=== PATIENT | male | born 1960 | race Caucasian/White ===

== ENCOUNTER 2018-03-08 17:13 | Emergency (ER) | payer BC ==
[2018-03-08 17:49] VITALS: BP 156/73
--- NOTE | 2018-03-08 18:15 | RAD ---
INDICATION: Ulnar aspect RIGHT wrist pain for several weeks without known injury. COMPARISON: None. TECHNIQUE: AP, lateral, and oblique views RIGHT wrist. REPORT: Normal articular alignment. Negative for fracture. Mild osteophytosis and joint space narrowing at the basal joint of the thumb as well as the hamate fifth metacarpal articulation. Soft tissue swelling about the wrist most prominent over the ulnar aspect. IMPRESSION: #. Mild osteoarthritis. #. Soft tissue swelling most prominent over the ulnar aspect.
--- NOTE | 2018-03-08 18:23 | UC ---
Hand/Wrist HPI - HPI Summary HPI Summary: Patient to urgent care today with chief complaint of right wrist pain ulnar aspect No specific injury has been doing a lot of repetitive stress building of garage. And also works as a machine maintenance servicer for the [employer] - History Of Current Complaint Chief Complaint: UCUpperExtremity Stated Complaint: RIGHT WRIST COMPLAINT Time Seen by Provider: 03/08/18 17:39 Hx Obtained From: Patient ?: No Mechanism Of Injury: repeative stress Onset/Duration: Gradual Onset, Lasting Weeks - 2, Still Present Pain Intensity: 7 Pain Scale Used: 0-10 Numeric Character Of Pain: Aching, Throbbing Aggravating Factor(s): Movement Alleviating Factor(s): Nothing Associated Signs And Symptoms: Positive: Swelling, Redness Related History: Dominant Hand Right - Repetitive stress - Allergies/Home Medications Allergies/Adverse Reactions: Allergies Allergy/AdvReac Type Severity Reaction Status Date / Time shellfish derived Allergy Anaphylatic Verified 03/08/18 17:43 Shock Home Medications: Home Medications NK [No Home Medications Reported] 03/08/18 [History Confirmed 03/08/18] PMH/Surg Hx/FS Hx/Imm Hx Previously Healthy: Yes - Surgical History Surgical History: Yes Surgery Procedure, Year, and Place: lumbar and cervical spin laser sx--10/2017 - Family History Known Family History: Positive: Cardiac Disease - Social History Occupation: Employed Full-time Lives: With Family Alcohol Use: Occasionally Substance Use Type: None Smoking Status (MU): Former Smoker When Did the Patient Quit Smoking/Using Tobacco: 1997 Review of Systems Constitutional: Negative Skin: Negative Eyes: Negative ENT: Negative Respiratory: Negative Cardiovascular: Negative Gastrointestinal: Negative Genitourinary: Negative Motor: Negative Neurovascular: Negative Musculoskeletal: Arthralgia - ulnar aspect of right wrist Neurological: Negative Psychological: Negative Is Patient Immunocompromised?: No All Other Systems Reviewed And Are Negative: Yes Physical Exam Triage Information Reviewed: Yes Appearance: Well-Appearing, Pain Distress - mild, Obese Vital Signs: Initial Vital Signs Temp 98.1 F 03/08/18 17:44 Pulse 71 03/08/18 17:44 Resp 18 03/08/18 17:44 BP 156/73 03/08/18 17:44 Pulse Ox 98 03/08/18 17:44 Vital Signs Reviewed: Yes Eye Exam: Normal Eyes: Positive: Conjunctiva Clear ENT Exam: Normal ENT: Positive: Normal ENT inspection, Hearing grossly normal. Negative: Trismus , Muffled voice, Hoarse voice Dental Exam: Normal Neck exam: Normal Neck: Positive: Supple, Nontender Respiratory Exam: Normal Respiratory: Positive: Chest non-tender, No respiratory distress, No accessory muscle use Cardiovascular Exam: Normal Cardiovascular: Positive: RRR, Pulses Normal, Brisk Capillary Refill Musculoskeletal Exam: Normal Musculoskeletal: Positive: Strength Intact, ROM Intact, No Edema Neurological Exam: Normal Neurological: Positive: Alert, Muscle Tone Normal Psychological Exam: Normal Skin Exam: Normal Diagnostics - Radiology No standard instances Xray Interpretation: No Acute Changes Radiology Interpretation Completed By: ED Physician, Radiologist - Patient Name : WILMER TOLENTINO Medical Record# : [id number] Ordering Physician: Nica Delaney NP Acct.#: [id number] : 1960 Age: 57 Sex: M Location: [facility]RGENT [facility] Exam Date: 1744 ADM Status: REG ER Order Information: WRIST RIGHT 3+ VWS Accession Number: [id number] CPT: 26202 INDICATION: Ulnar aspect RIGHT wrist pain for several weeks without known injury. COMPARISON: None. TECHNIQUE: AP, lateral, and oblique views RIGHT wrist. REPORT: Normal articular alignment. Negative for fracture. Mild osteophytosis and joint space narrowing at the basal joint of the thumb as well as the hamate fifth metacarpal articulation. Soft tissue swelling about the wrist most prominent over the ulnar aspect. IMPRESSION: #. Mild osteoarthritis. #. Soft tissue swelling most prominent over the ulnar aspect. <Electronically signed by Jorge Healy MD in OV> 03/08/181811 Dictated By: Jorge Healy MD Dictated Date/Time: 03/08/181811 Transcribed Date/Time: 03/08/181808 Copy to: CC:Jake Hernandez MD; Nica Delaney TOOL ROOM SUPERVISOR; Nicholas Hodge MD Imaging - [facility] [address] [place] [id number] ph ([phone]) ph ([phone]) ) This report is only to be considered final once signed by the Provider(s) as displayed in the "<Electronically Signed by >" field (s). Absence of a signature indicates the report is in a draft status and still needs to be finalized. In the event this document was created by someone other than the signing Provider, the individual initiating the document will be listed in the "Entered by:" or "Dictated by:" velasco. 1 of 1 Hand/Wrist Course/Dx - Course Course Of Treatment: patient refused work note, cockup splint applied, ortho referral, nsaid, follow bp with pcp - Differential Dx/Diagnosis Provider Diagnoses: right wrist tendonitis, elevated blood presure without diagnosis of hypertension Discharge - Sign-Out/Discharge Documenting (check all that apply): Patient Departure - Discharge Plan Condition: Stable Disposition: HOME Patient Education Materials: Wrist Injury (ED), Osteoarthritis (ED), Hypertension (ED), Tendinitis (ED) Referrals: Vick Rodriguez MD [Medical Doctor] - 1 Week Jake Hernandez MD [Primary Care Provider] - 2 Weeks - Billing Disposition and Condition Condition: STABLE Disposition: Home
== END 2018-03-08 18:47 | disposition home or self-care (01) ==
LOC: UCCORT 17:13
DX: M77.9 Enthesopathy, unspecified (principal); X50.3XXA Overexertion from repetitive movements, initial encounter; Y93.H3 Activity, building and construction; Y92.59 Other trade areas as the place of occurrence of the external cause; Z87.891 Personal history of nicotine dependence
CPT/HCPCS: 99212; G0463